=== PATIENT | female | born 2000 | race Caucasian/White ===

== ENCOUNTER 2023-12-07 16:12 | Emergency (ER) | payer BC, SELFPAY ==
[2023-12-07 16:38] VITALS: BP 119/82; PULSE 134; RESP 20; TEMP 36.9; O2SAT 98; BMI 35.4
--- NOTE | 2023-12-07 18:08 | ED.GENADULT ---
HPI - General Adult General Time Seen by Provider: 18:08 Date Seen: 12/07/23 Chief complaint: Unspecified Complaint, Adult Stated complaint: Chest pain, racing heart, nausea, Heart monitor Time Seen by Provider: 12/07/23 18:08 Source: patient, RN notes reviewed and old records reviewed Mode of arrival: ambulatory Limitations: no limitations History of Present Illness HPI narrative: 23-year-old female who presents today with palpitations, has been having this for the last couple of weeks, currently does have a Zio patch on. Was previously evaluated at an outside facility for this with reported negative evaluation. Patient says the symptoms have been going on several weeks. She feels chest tightness that radiates into both arms, nausea with decreased oral intake, denies diarrhea or dark stools. No abdominal pain. Patient feels like she has lost a little bit of weight. Denies smoking, alcohol use. Related Data Home Medications Medication Instructions Recorded Confirmed Lamictal ODT Starter (Blue) 12/07/23 amitriptyline 50 mg tablet 50 mg PO DAILY 12/07/23 12/07/23 prazosin 1 mg capsule (Minipress) 1 mg PO QPM 12/07/23 12/07/23 trazodone 100 mg tablet 100 mg PO QHS PRN 12/07/23 12/07/23 Allergies Allergy/AdvReac Type Severity Reaction Status Date / Time No Known Drug Allergies Allergy Verified 12/07/23 16:47 PFSH PFSH Social History Smoking Status: Never smoker How often do you have a drink containing alcohol: never AUDIT-C Alcohol total score: 0 Non-prescribed substance use: denies use Exam Narrative: Exam Narrative: General: Well-developed and well-nourished, no acute distress Head: Atraumatic and normocephalic Eyes: Pupils are equal reactive, extraocular motions intact, conjunctiva clear ENT: External nose and ears are normal, posterior pharynx without erythema or exudate Neck: No midline cervical tenderness, full spontaneous range of motion the neck, trachea midline, no adenopathy Heart: Tachycardic rate and rhythm no murmurs or thrills Lungs: Clear to auscultation bilaterally without wheezes or crackles Abdomen: Soft, nontender, nondistended with active bowel sounds Musculoskeletal: No tenderness, deformity, or edema Neurologic: Awake, alert, and oriented x3, no gross focal neurologic deficits, cranial nerves intact as tested Psych: Mood and affect are appropriate Skin: No rashes Const: Vital Signs, click to edit/add: Vital Signs - 24 hr 12/07/23 16:38 12/07/23 19:01 Temperature 98.5 F Pulse Rate 109 H Pulse Rate [Pulse Oximeter] 134 H Respiratory Rate 20 14 Blood Pressure 135/73 Blood Pressure [Ri ght Upper Arm] 119/82 Pulse Oximetry 98 100 Oxygen Delivery Me thod Room Air Course Course ED Course: Patient seen examined, prior records reviewed. Patient presents today with palpitations, has history of similar over the last couple of weeks. On initial arrival here heart rate 134, at the time of my exam heart rate was improved but still elevated. Initial EKG demonstrates sinus tachycardia without evidence for atrial dysrhythmia or ventricular dysrhythmia. Labs ordered and will monitor in the emergency department. Reevaluation(s) Time of Reevaluation #1: 19:19 Reevaluation #1: Labs ordered and independently interpreted by me with normal CBC, negative D-dimer, normal basic metabolic panel normal magnesium, normal patent panel, negative CRP, negative BMP, negative test, negative troponin. Patient presents today with palpitations which have been intermittent and going on for the last couple of weeks, accompanied by some chest pain. On exam here, tachycardic in EKG demonstrates sinus tach with no acute ischemic changes, troponin is negative, acute coronary syndrome unlikely. Consider pulmonary embolism but D-dimer is negative, BNP is normal as well. CRP negative and no peaked T-waves or ST changes on EKG to suggest pericarditis or endocarditis. Patient has a residential monitor on now which I suspect will demonstrates sinus tachycardia, she could also be having runs of SVT with a prolonged recovery phase on resumption of sinus rhythm. In any case, no acute emergent or urgent medical condition identified and no urgent or emergent indication for intervention. Patient is stable for discharge with outpatient follow-up. Vital Signs Vital signs: Initial Vital Signs Temperature 98.5 F 12/07/23 16:38 Temperature Source Temporal Artery Scan 12/07/23 16:38 Pulse Rate 134 H 12/07/23 16:38 Pulse Rhythm Regular 12/07/23 16:38 Respiratory Rate 20 12/07/23 16:38 Blood Pressure 119/82 12/07/23 16:38 Blood Pressure Mean 94 12/07/23 16:38 Pulse Oximetry 98 12/07/23 16:38 Oxygen Delivery Method Room Air 12/07/23 16:38 Vital Signs Temperature 98.5 F 12/07/23 16:38 Pulse Rate 134 H 12/07/23 16:38 Respiratory Rate 20 12/07/23 16:38 Blood Pressure 119/82 12/07/23 16:38 Pulse Oximetry 98 12/07/23 16:38 Oxygen Delivery Method Room Air 12/07/23 16:38 Temperature 98.5 F 12/07/23 16:38 Pulse Rate 109 H 12/07/23 19:01 Respiratory Rate 14 12/07/23 19:01 Blood Pressure 135/73 12/07/23 19:01 Pulse Oximetry 100 12/07/23 19:01 Oxygen Delivery Method Room Air 12/07/23 16:38 Medical Decision Making Lab Data Labs: Lab Results 12/07/23 12/07/23 Range/Units 18:30 18:30 WBC 10.15 (4.50-11.00) K/uL RBC 5.06 (4.00-5.20) m/uL Hgb 13.1 (12.0-16.0) gm/dL Hct 39.5 (33.0-51.0) % MCV 78 L (80-100) fL MCH 26 (26-34) pg MCHC 33 (32-36) gm/dL RDW Coeff of Damon 13.5 (11.5-15.5) % Plt Count 311 (140-440) K/uL Neut % (Auto) 68.2 (42.0-72.0) % Lymph % (Auto) 23.2 (20-44) % [place] % (Auto) 6.9 (0.0-11.0) % Eos % (Auto) 1.0 (0.0-7.0) % Baso % (Auto) 0.4 (0.0-3.0) % Neut # (Auto) 6.93 (1.7-7.0) K/uL Lymph # (Auto) 2.35 (0.90-2.90) K/uL [place] # (Auto) 0.70 (0.00-0.90) K/UL Eos # (Auto) 0.10 (0.00-0.50) K/uL Baso # (Auto) 0.04 (0.00-0.30) K/uL Abs Immat Gran (auto) 0.03 (0.00-0.30) K/uL Imm/Tot Granulo (auto) 0.3 % D-Dimer Quant (PE/DVT) 0.34 (0.00-0.50) ug/ml Sodium 137 (135-149) mmol/L Potassium 3.8 (3.6-5.1) mmol/L Chloride 105 (96-114) mmol/L Carbon Dioxide 21 (20-32) mmol/L Anion Gap 11 (7-15) mEq/L BUN 9 (5-24) mg/dL Creatinine 0.6 (0.5-1.5) mg/dL Estimated Creat Clear 121.66 Estimated GFR 130 ml/min Glucose 90 (60-115) mg/dL Calcium 9.4 (8.4-10.6) mg/dL Magnesium 2.2 (1.5-2.6) mg/dL Total Bilirubin 0.4 (0.1-1.5) mg/dL Direct Bilirubin 0.1 (0.0-0.5) mg/dL AST 25 (12-35) U/L ALT 14 (4-35) U/L Alkaline Phosphatase 94 (40-150) U/L C-Reactive Protein 0.8 Cancelled (0.5-1.0) mg/dL NT-Pro-B Natriuret Pep < 20 pg/mL Total Protein 8.4 H (6.0-8.3) g/dL Albumin 4.6 (3.3-5.0) g/dL HCG, Qual Negative (Negative) ECG Data Attestation: I personally reviewed and interpreted this ECG as follows: Prior ECG tracings: not available for review Interpretation: Performed at 6:09 p.m. demonstrates sinus tachycardia rate 120, no acute ST elevations or depressions, normal intervals, normal axis, QTC 463, [place] 150. No prior for comparison Discharge Plan Discharge Clinical Impression: Heart palpitations, Nausea and vomiting Patient Disposition: Home, Self-Care Condition: Stable Instructions: Heart Palpitations (ED), Acute Nausea and Vomiting (DC) Additional Instructions: Follow-up with your primary care provider next week for further evaluation and treatment. Activity Level: Activity as Tolerated Discharge Diet: Regular Prescriptions: No Action trazodone 100 mg tablet 100 mg PO QHS PRN Lamictal ODT Starter (Blue) Patient Comments: 300mg amitriptyline 50 mg tablet 50 mg PO DAILY prazosin [Minipress] 1 mg capsule 1 mg PO QPM Follow Up/Referrals: Provider,Not a Local [Primary Care Provider] - Stand Alone Forms: [employer] Info Instructions
[2023-12-07 18:42] LABS: Basophils Absolute Auto 0.04 K/uL (0.00-0.30); Basophils Percent Auto 0.4 % (0.0-3.0); Hematocrit 39.5 % (33.0-51.0); Hemoglobin* 13.1 gm/dL (12.0-16.0); Immature Granulocytes Abs Auto 0.03 K/uL (0.00-0.30); Immature Granulocytes Pct Auto 0.3 %; Lymphocytes Absolute Auto 2.35 K/uL (0.90-2.90); Lymphocytes Percent Auto 23.2 % (20-44); Mean Corpuscular HGB Conc 33 gm/dL (32-36); Mean Corpuscular Hemoglobin 26 pg (26-34); Mean Corpuscular Volume 78 fL (80-100); Monocytes Percent Auto 6.9 % (0.0-11.0); Neutrophils Absolute Auto 6.93 K/uL (1.7-7.0); Neutrophils Percent Auto 68.2 % (42.0-72.0); Platelet Count* 311 K/uL (140-440); RDW Coefficient of Variation % 13.5 % (11.5-15.5); Red Blood Count 5.06 m/uL (4.00-5.20); White Blood Count* 10.15 K/uL (4.50-11.00)
[2023-12-07 18:45] LABS: Slide Review Reflex No
[2023-12-07] MEDS: 0.9 % SODIUM CHLORIDE 1000 ml 1,000 ML IV (18:50)
[2023-12-07 18:57] LABS: Albumin* 4.6 g/dL (3.3-5.0); Chloride* 105 mmol/L (96-114)
[2023-12-07 18:58] LABS: Potassium* 3.8 mmol/L (3.6-5.1); Sodium* 137 mmol/L (135-149)
[2023-12-07 19:00] LABS: Creatinine* 0.6 mg/dL (0.5-1.5); Est. Creatinine Clearance* 121.66; Estimated Glomerular Filt Rate 130 ml/min
[2023-12-07 19:01] VITALS: BP 135/73; PULSE 109; RESP 14; O2SAT 100
[2023-12-07 19:01] LABS: Alanine Aminotransferase* 14 U/L (4-35); Alkaline Phosphatase* 94 U/L (40-150); Anion Gap 11 mEq/L (7-15); Aspartate Amino Transferase* 25 U/L (12-35); Bilirubin Direct* 0.1 mg/dL (0.0-0.5); Bilirubin Total* 0.4 mg/dL (0.1-1.5); Blood Urea Nitrogen* 9 mg/dL (5-24); Calcium* 9.4 mg/dL (8.4-10.6); Carbon Dioxide* 21 mmol/L (20-32); Glucose* 90 mg/dL (60-115); Total Protein* 8.4 g/dL (6.0-8.3)
[2023-12-07 19:02] LABS: Magnesium* 2.2 mg/dL (1.5-2.6)
[2023-12-07 19:03] LABS: D Dimer Quantitative* 0.34 ug/ml (0.00-0.50)
[2023-12-07 19:04] LABS: C Reactive Protein* 0.8 mg/dL (0.5-1.0)
[2023-12-07 19:08] LABS: HCG Qualitative Serum* Negative (Negative)
[2023-12-07 19:16] LABS: NT Pro B Type NatriureticPept* < 20 pg/mL
[2023-12-07 19:32] VITALS: BP 142/84; PULSE 113; RESP 14; O2SAT 98
[2023-12-07 19:45] VITALS: PULSE 104; O2SAT 98
[2023-12-07 19:52] VITALS: BP 119/82; PULSE 104; RESP 14; TEMP 36.9
== END 2023-12-07 19:53 | disposition home or self-care (01) ==
PROVIDERS: Emergency Provider Family Medicine
DX: R00.2 Palpitations (principal); R11.2 Nausea with vomiting, unspecified
CPT/HCPCS: 36415; 80048; 80076; 83735; 83880; 84703; 85025; 85379; 86140; 93005; 96360; 99284; J7030

== ENCOUNTER 2025-03-31 21:16 | Emergency (ER) | payer OTHER, SELFPAY ==
--- OUTSIDE RECORDS SUMMARY | 2015-01-17 19:00 | XMS_ITS | Continuity of Care Document ---
Author Organization [facility] Address [address] [place] [address] Phone Care Team Providers Care Quality Control Representative Name Role Phone Unavailable Unavailable Unavailable Advance Directives Directive Yes / No Effective Date File Name No Information Encounters Encounter Description Practice Location Reason(s) For Visit Diagnoses Date Provider Providers Copied on Encounter [facility], [address], [place], [place], [id number], [place] tel:[phone] Formerly [facility] Data [facility] No Information Family History Family Member Type Diagnosis Age At Onset No Information Payers Payer name Insurance type Covered democrat ID Authoriza tion(s) No Information Social History Type Description Quantity Date Captured Comments Sex Female Smoking Status No Information Chief Complaint And Reason For Visit No Information Reason For Referral Reason For Referral No Information History Of Present Illness Encounter Date Complaint History Of Prese nt Illness No Information Functional Status Date Functional Assessmen t No Information Instructions Date Instruction Additional Infor mation No Information Assessments Type Assessment Date No Information Patient Care Teams Name Effective Dates (start - stop) Status Members No Information
--- OUTSIDE RECORDS SUMMARY | 2015-01-17 19:00 | XMS_ITS | Continuity of Care Document ---
Author Organization [facility] Address [address] [place] [address] Phone Care Team Providers Care Manager Inventory Control Name Role Phone Unavailable Unavailable Unavailable Advance Directives Directive Yes / No Effective Date File Name No Information Encounters Encounter Description Practice Location Reason(s) For Visit Diagnoses Date Provider Providers Copied on Encounter [facility], [address], [place], [place], [id number], [place] tel:[phone] [facility] Data [facility] No Information Family History Family Member Type Diagnosis Age At Onset No Information Payers Payer name Insurance type Covered libertarian ID Authoriza tion(s) No Information Social History [...]
--- OUTSIDE RECORDS SUMMARY | 2025-03-31 21:19 | XMS_ITS | Data Portability ---
Author Organization [facility] Address [address] [place] [address] Care Team Providers Care Chainsaw Mechanic Name Role Phone DEEPIKA COMFORT Referring Provider Assessment No assessment recorded. Plan of Treatment Reminders Order Date Submit Date Provider Last Modified By Organization Details Last Modified Time Details Appointments None recorded. Lab urinalysis, dipstick 2024 025 [facility], [address], [place], [address], 15:08:16 urinalysis, microscopic 2024 025 [facility], [address], [place], [address], 15:08:16 Referral None recorded. Procedures None recorded. Surgeries None recorded. Imaging None recorded. Medication Orders None recorded. Patient TargetsNo targets recorded. Patient InstructionsNo instructions recorded. Reason for Referral None Reported. Results Created Date Observation Date Name Description Value Unit Range Abnormal Flag Note LastModifiedBy Organization Detail LastModifiedTime 11/07/1911/07/2024 UA WITHO UT MICRO - CS URISC AN blood - uriscan NEGATI VE negati ve Not Available [facility] [address], [place], [address], 11/07/2024 14:31:15 11/07/19 25 11/07/2024 UA WITHO UT MICRO - CS URISC AN bilirubin - uriscan NEGATI VE mg/dL negati ve Not Available [facility] [address] [place] [address], [place], [address], 11/07/2024 14:31:15 11/07/19 25 11/07/2024 UA WITHO UT MICRO - CS URISC AN urobilinogen - uriscan NORMAL mg/dL normal Not Available [facility] [address] [place] [address], [place], [address], 11/07/2024 14:31:15 11/07/19 25 11/07/2024 UA WITHO UT MICRO - CS URISC AN ketones - uriscan NEGATI VE mg/dL negati ve Not Available [facility] [address] [place] [address], [place], [address], 11/07/2024 14:31:15 11/07/19 25 11/07/2024 UA WITHO UT MICRO - CS URISC AN protein - uriscan NEGATI VE mg/dL negati ve Not Available [facility] [address] [place] [address] [address], [place], [address], 11/07/2024 14:31:15 11/07/19 25 11/07/2024 UA WITHO UT MICRO - CS URISC AN nitrites - uriscan NEGATI VE negati ve Not Available [facility] [address] [place] [address] [address], [place], [address], 11/07/2024 14:31:15 11/07/19 25 11/07/2024 UA WITHO UT MICRO - CS URISC AN glucose - uriscan NEGATI VE mg/dL negati ve Not Available [facility] [address] [place] [address] [address], [place], [address], 11/07/2024 14:31:15 11/07/19 25 11/07/2024 UA WITHO UT MICRO - CS URISC AN pH - uriscan 5.00 5.00-9 .00 Not Available [facility] [address] [place] [address] [address], [place], [address], 11/07/2024 14:31:15 11/07/19 25 11/07/2024 UA WITHO UT MICRO - CS URISC AN sp. gravity - uriscan 1.01 1.01-1 .03 Not Available [facility] [address] [place] [address], [place], [address], 11/07/2024 14:31:15 11/07/19 25 11/07/2024 UA WITHO UT MICRO - CS URISC AN leukocytes - uriscan NEGATI VE negati ve Not Available [facility] [address] [place] [address], [place], [address], 11/07/2024 14:31:15 11/07/19 25 11/07/2024 UA WITHO UT MICRO - CS URISC AN color - uriscan YELLOW lt. yellow ;yello w Not Available [facility] [address] [place] [address] [address], [place], [address], 11/07/2024 14:31:15 11/07/19 25 11/07/2024 UA WITHO UT MICRO - CS URISC AN clarity - uriscan CLEAR clear Not Available [facility] [address] [place] [address], [place], [address], 11/07/2024 14:31:15 11/07/19 25 11/07/2024 UA WITHO UT MICRO - CS URISC AN total urine volume (mL) 75 ML /mL ----- ----- ----- ----- ----- ----- ----- ----- ----- ----- ----- ----- ----- ----- ---- *Plea se note the follo wing minim um quant ities for addit ional urine testi ng: - Atypi cals: 3 mL - Cytol ogy: 20 mL - GC/CH : 2 mL - FISH: 30 mL - Atypi cals w/ GC/CH : 5 mL - Cytol ogy PLUS FISH: 50 mL - Urine Cultu re: 3 mL ----- ----- ----- ----- ----- ----- ----- ----- ----- ----- ----- ----- ----- ----- ---- This lab resul t is being provi ded to you and your provi radha at the same time in compl iance with the Centu ry Cures Act. Your provi radha may not have had time to revie w and make recom menda tions based on the resul t. Leoncio lozano allow up to one week for provi radha revie w. Not Available [facility] [address] [place] [address] [address], [place], [address], 11/07/2024 14:31:15 Result Notes None recorded. Procedures Surgical History Date Name Laterality Status Provider Name and Address Organization Details Recorded Time 5 Pelvic Exam completed CONOR SAUNDERS [address] [place] [address],[facility] [address], [place], [address], [facility] 11/06/2024 11:36:13 5 Past Data Reviewed completed CONOR SAUNDERS [address] [place] [address],[address], [place], [address], [facility] 11/06/2024 11:38:45 5 Bladder Scan completed Lori Ayala [facility] 11/07/2024 14:24:15 Imaging Results None recorded. Procedure Notes None recorded. Medical Equipment None Reported. Allergies No known drug allergies Medications Name Sig Start Date Stop Date Status Note LastModified by Organization Details LastModified Time methocarbamol 500 mg tablet 500mg 3/day active Not Available Not Available No t Available lamotrigine 200 mg tablet TAKE 1 TABLET BY MOUTH DAILY active Not Available Not Available No t Available amitriptyline 150 mg tablet 50mg 1/day active Not Available Not Avail able Not Available prazosin 1 mg capsule 1mg 1/day active Not Available Not Available No t Available amitriptyline 50 mg tablet TAKE 1 TABLET BY MOUTH DAILY AT BEDTIME active Not Available Not Available No t Available lorazepam 0.5 mg tablet TAKE ONE TAB UP TO TWICE A A DAY NEEDED FOR INCREASED ANXIETY active Not Available Not Available No t Available trazodone 100 mg tablet 100mg 1/day active Not Available Not Available No t Available bupropion HCl XL 150 mg 24 hr tablet, extended release TAKE 1 TABLET BY MOUTH DAILY active Not Available Not Available No t Available duloxetine 30 mg capsule,delay ed release TAKE 1 CAPSULE BY MOUTH EVERY MORNING active Not Available Not Available No t Available duloxetine 60 mg capsule,delay ed release 60mg 2/day active Not Available Not Availabl e Not Available pregabalin 50 mg capsule active Not Available Not Available N ot Available Lyrica 100 mg capsule 100mg 3/day active Not Available Not Available No t Available lamotrigine 200 mg disintegratin g tablet 200mg 1/day active Not Available Not Available No t Available Vitals Date Recorded Body mass index (BMI) Body weight Provider Name and Address Organization Details Last Updated DateTime 11/07/2024 43.9 kg/m2 161430.17 g Lori Hernandez [facility] 11/07/2024 14:01:18 Date Recorded Body height Provider Name an d Address Organization Details Last Updated DateTime 11/07/2024 157.48 cm Not Available Health Note 11/07/2024 13:55:48 Social History Question Answer Notes LastModified by Organizat ion Details LastModified Time Tobacco Smoking Status Never Smoker Not Available Health Note 11/06/2024 18:08:24 Do You Have An Advance Directive? No [email or web address] Information not available 11/06/2024 What Is Your Level Of Caffeine Consumption? Moderate [email or web address] Information not available 11/06/2024 How Much Tobacco Do You Chew? None [email or web address] Information not available 11/06/2024 Do You Have A Medical Power Of [place]? No [email or web address] Information not available 11/06/2024 What Was The Date Of Your Most Recent Tobacco Screening? 11/07/2024 [email or web address] Information not available 11/06/2024 What Is Your Relationship Status? [email or web address] Information not available 11/06/2024 Are You Sexually Active? No [email or web address] Information not available 11/06/2024 Has Tobacco Cessation Counseling Been Provided? No [email or web address] Information not available 11/07/2024 How Many Days In The Past Year Have You Consumed 4 Or More Drinks? 0 [email or web address] Information no t available 11/06/2024 Sex: Unknown Functional Status Question Answer Note LastModified by Organizat ion Details LastModified Time Do you use any illicit or recreational drugs? No [email or web address] Information not available 11/06/2024 Do you or have you ever used any other forms of tobacco or nicotine? No [email or web address] Information not available 11/07/2024 What is your level of alcohol consumption? None [email or web address] Information not available 11/07/2024 Do you or have you ever used smokeless tobacco? Never used smokeless tobacco [email or web address] Information not available 11/06/2024 Do you or have you ever used e-cigarettes or vape? Never used electronic cigarettes [email or web address] Information not available 11/06/2024 Mental Status None recorded. Family History Nothing Reported Notes:Father has high blood pressure Medical History Condition Response Sexually Transmitted Infection N Diabetes N Bleeding Disorder N High Blood Pressure N Kidney Stones N Cancer N Lung Disease N Depression Y High Cholesterol N GERD/Acid Reflux N Heart Disease N Gynecological History Statement/Question Response Irregular periods Y Heavy periods Y Sexually Active? N Obstetrics History GPAL:G 0 P 0 0 0 0 Past Encounters Encounter ID Performer Location Encounter Start Date Encounter Closed Date Diagnosis/Indication Diagnosis SNOMED-CT Code Diagnosis ICD10 Code Diagnosis Note [id number] CONOR SAUNDERS [facility] [address] [facility] [address] [place] [address] 11/07/2024 13:52:34 11/12/2024 10:14:34 Overactive urinary bladder 023258453 N32.81 new Urinary incontinence 165 367553 R32 new, urge and insensate- Emptying well, PVR 3cc-Review ed overactive bladder care pathway and gave handout.-D iscussed first-line conservati ve management including timed voiding, urge suppressio n strategies , pelvic floor exercises, and avoidance of bladder irritants. -Tender PFMs on exam. Recommende d PFPT. She has a therapist who she has seen in the past and prefers to work with. Does not need new referral-D oes not want to be on medication s at this point-Curr ently undergoing medical workup for neurologic /pain conditions . Will revisit PFPT and then follow up with me when she has more answers about her overall health Myalgia of pelvic floor [id number] M79.18 new Health Concerns Section Related Observation LastModified by Organization Detai ls LastModified Time None Recorded Concern Status LastModified by Organization Details LastModified Time None Recorded Advance Directives Directive N: Payers Insurance Date Sequence Insurance Name Policy Number Policy Lindsey Covered Member ID Lindsey Member ID Guarantor Name 11/07/2024 1 *SELF PAY* Sonia Dutton 11/07/2024 1 [employer] [id number] Marlene Dutton [id number] Marlene Dutton Notes Date Note Type Note Provider Name and Address Organization Details Recorded Time 11/07/2024 text/html 11/[birth year]/[age]yo F presents for evaluation of incontinence History of ASUNCION, fibromyalgia, chronic fatigue Here with her mother who is a nurse. Mother reports she is currently undergoing workup for possible MS, Mile danlos, chronic pain syndrome. Patient reports concern of incontinence off an on for a few years, but much worse over the last 6 months. No life changes that she can associate with this. She voids every few hours during the day, 0 times at night, not wearing pads for leakage. Experiences incontinence when her chronic pain is exacerbated or when she has to walk around. Does not have an urge preceding the leakage always. Infrequent CONRADO. No history of recurrent urinary tract infections, kidney stones, or gross hematuria. Denies symptomatic prolapse, abdominal surgeries include none. Drinks 3 glasses milk, 1-2 cans soda, and 1 cup of tea, sometimes a bottle of water. BM daily. Never smoker. She has done PFPT in the past. Urogenital Distress Inventory (ENRRIQUE-6): 11, Incontinence Impact Questionnaire (IIQ-7): 8 CONOR SAUNDERS [address] [place] [address],[address], [place], [address], [place] [facility] 11/07/2024 14:35:19 OBGyn Episode No OBEpisode recorded.
--- OUTSIDE RECORDS SUMMARY | 2025-03-31 21:19 | XMS_ITS | Data Portability ---
Author Organization [facility], [facility] Address [address] [place] [address] Care Team Providers Care Wind Turbine Mechanical Engineer Name Role Phone DEEPIKA COMFORT Referring Provider [phone] Assessment No assessment recorded. Plan of Treatment Reminders Order Date Submit Date Provider Last Modified By Organization Details Last Modified Time Details Appointments None recorded. Lab urinalysis, dipstick 2024 025 [facility], [address] [facility] [address], [address], [place], [address], 15:08:16 urinalysis, microscopic 2024 025 [facility], [address], [address], [place], [address], 15:08:16 Referral None recorded. Procedures None recorded. [...] uriscan NEGATI VE negati ve Not Available [facility] [address] [facility], [place], [address], 11/07/2024 14:31:15 11/07/19 25 11/07/2024 UA WITHO UT MICRO - CS URISC AN bilirubin - uriscan NEGATI VE mg/dL negati ve Not Available [facility] [address] [place] [address] [address], [place], [address], 11/07/2024 14:31:15 11/07/19 25 11/07/2024 UA WITHO UT MICRO - CS URISC AN urobilinogen - uriscan NORMAL mg/dL normal Not Available [facility] [address] [place] [address] [address], [place], [address], 11/07/2024 14:31:15 11/07/19 25 11/07/2024 UA WITHO UT MICRO - CS URISC AN ketones - uriscan NEGATI VE mg/dL negati ve Not Available [facility] [address] [place] [address] [address], [place], [address], 11/07/2024 14:31:15 11/07/19 25 11/07/2024 UA WITHO UT MICRO - CS URISC AN protein - uriscan NEGATI VE mg/dL negati ve Not Available [facility] [address] [place] [address] [address], [place], [address], 11/07/2024 14:31:15 11/07/19 25 11/07/2024 UA WITHO UT MICRO - CS URISC AN nitrites - uriscan NEGATI VE negati ve Not Available [facility] [address] [place] [address] 200, [place], [address], 11/07/2024 14:31:15 11/07/19 25 11/07/2024 UA WITHO UT MICRO - CS URISC AN glucose - uriscan NEGATI VE mg/dL negati ve Not Available [facility] [address] [place] [address] [address], [place], [address], 11/07/2024 14:31:15 11/07/19 25 11/07/2024 UA WITHO UT MICRO - CS URISC AN pH - uriscan 5.00 5.00-9 .00 Not Available [facility] [address] [place] [address] [address], [place], [address], 11/07/2024 14:31:15 11/07/19 25 11/07/2024 UA WITHO UT MICRO - CS URISC AN sp. gravity - uriscan 1.01 1.01-1 .03 Not Available [facility] [address] [place] [address] 200, [place], [address], 11/07/2024 14:31:15 11/07/19 25 11/07/2024 UA WITHO UT MICRO - CS URISC AN leukocytes - uriscan NEGATI VE negati ve Not Available [facility] [address] [place] [address], [place], [address], 11/07/2024 14:31:15 11/07/19 25 11/07/2024 UA WITHO UT MICRO - CS URISC AN color - uriscan YELLOW lt. yellow ;yello w Not Available [facility] [address] [place] [address] 200, [place], [address], 11/07/2024 14:31:15 11/07/19 25 11/07/2024 UA WITHO UT MICRO - CS URISC AN clarity - uriscan CLEAR clear Not Available [facility] [address] [place] [address] 200, [place], [address], 11/07/2024 14:31:15 11/07/19 25 11/07/2024 UA WITHO [...] for provi radha revie w. Not Available [facility] [address] [place] [address] [address], [place], [address], 11/07/2024 14:31:15 Result Notes None recorded. Procedures Surgical History Date Name Laterality Status Provider Name and Address Organization Details Recorded Time 5 Pelvic Exam completed CONOR SAUNDERS [address] [place] [address],[facility] [address], [address], [facility] 11/06/2024 11:36:13 5 Past Data Reviewed completed CONOR SAUNDERS [address] [place] [address],[address], [place], [address], [facility] 11/06/2024 11:38:45 5 Bladder Scan completed Lori Ayala [facility] 11/07/2024 14:24:15 Imaging Results None recorded. [...] Details Last Updated DateTime 11/07/2024 43.9 kg/m2 119187.17 g Lori Hernandez [facility] 11/07/2024 14:01:18 Date Recorded Body height [...] Do You Have A Medical Power Of Line Prep Cook? No [email or web address] Information not available 11/06/2024 What Was The Date Of Your Most Recent Tobacco Screening? 11/07/2024 [email or web address] Information not available 11/06/2024 What Is Your Relationship Status? [email or web address] Information not available 11/06/2024 Are You Sexually Active? No [email or web address] Information not available 11/06/2024 Has Tobacco Cessation Counseling Been Provided? No [email or web address] Information not available 11/07/2024 How Many Days [...] other forms of tobacco or nicotine? No [email or web address] Information not available 11/07/2024 What is your level of alcohol consumption? None [email or web address] Information not available 11/07/2024 Do you or [...] SNOMED-CT Code Diagnosis ICD10 Code Diagnosis Note [id number] CONOR SAUNDERS [facility] [address] [facility] [address] [place] [address] 11/07/2024 13:52:34 11/12/2024 10:14:34 Overactive urinary bladder 216474628 N32.81 new Urinary incontinence 165 171255 R32 new, urge and insensate- Emptying well, [...] her overall health Myalgia of pelvic floor [id number] M79.18 new Health Concerns Section Related Observation LastModified by Organization Detai ls LastModified Time None Recorded Concern Status LastModified by Organization Details LastModified Time None Recorded Advance Directives Directive N: Payers Insurance Date Sequence Insurance Name Policy Number Policy Lindsey Covered Member ID Lindsey Member ID Guarantor Name 11/07/2024 1 *SELF PAY* Sonia Dutton 11/07/2024 1 [employer] [id number] Marlene Dutton [id number] Marlene Dutton Notes Date Note Type [...] Incontinence Impact Questionnaire (IIQ-7): 8 CONOR SAUNDERS [address] [place] [address],[address], [place], [address], [place] - [facility] 11/07/2024 14:35:19 OBGyn Episode No OBEpisode recorded.
--- OUTSIDE RECORDS SUMMARY | 2025-03-31 21:19 | XMS_ITS | Clinical Summary ---
Author Organization [facility] Address [address] [place] [address] Care Team Providers Care Clinical Associate Name Role Phone Needs Pcp, Assignment Primary Care Provider [phone] Source Comments You are receiving this document as you are listed as the primary care provider,follow-up provider, or the patient has been referred to you for consultation.This is in compliance with the Medicare and[facility] EHR Incentive Program,which states Providers who transition their patient to another setting of careor provider of care or refers their patient to another provider of care shouldprovide summary care record for each transition of care or referral. [facility] Allergies No known active allergies Medications amitriptyline (ELAVIL) 50 MG tablet Take 1 Tablet (50 mg) by mouth daily. 04/23/2022 Active buPROPion (WELLBUTRIN XL) 300 MG 24 hour release tablet Take 300 mg by mouth daily. 04/23/2022 Active hydrOXYzine HCl (ATARAX) 25 MG tablet SMARTSI Tablet(s) By Mouth 1-3 Times Daily 02/11/2022 Active lamoTRIgine (LAMICTAL) 200 MG tablet Take 1 Tablet (200 mg) by mouth daily. 02/11/2022 Active prazosin (MINIPRESS) 1 MG capsule Take 1 Capsule (1 mg) by mouth daily at bedtime. 01/07/2022 Active traZODone (DESYREL) 100 MG tablet Take 1 Tablet (100 mg) by mouth daily as needed. 04/22/2022 Active LORazepam (ATIVAN) 0.5 MG tablet SMARTSI Tablet(s) By Mouth 1-3 Times Daily PRN 09/05/2023 Active Active Problems Problem Noted Date Diagnosed Date Generalized anxiety disorder 01/05/2021 Suicidal ideations 01/05/2021 Social History Tobacco Use Types Packs/Day Years Used Date Smoking Tobacco: Never Tobacco Cessation:Counseling Given: Not Answered Alcohol Use Standard Drinks/Week Comments Not Currently 0 (1 standard drink = 0.6 oz pur e alcohol) Comments No Sex and Gender Information Value Date Recorded Sex Assigned at Not on file Legal Sex Female 5:35 PM CDT Gender Identity Not on file Sexual Orientation Not on file Last Filed Vital Signs Vital Sign Reading Time Taken Comments Blood Pressure 134/88 11/23/2023 5:25 PM JOINT CUTTER MACHINE Pulse 133 11/23/2023 5:25 PM JOINT CUTTER MACHINE Temperature 36.9 C (98.5 F) 11/23/2023 5:25 PM JOINT CUTTER MACHINE Respiratory Rate 20 11/23/2023 5:25 PM JOINT CUTTER MACHINE Oxygen Saturation 98% 11/23/2023 5:25 PM JOINT CUTTER MACHINE Inhaled Oxygen Concentration - - Weight - - Height - - Body Mass Index - - Plan of Treatment Health Maintenance Due Date Last Done Comments Cervical Cancer Screening Due 2001 Chlamydia 2001 Hep C Screening (Preventive Services) 2001 MenB Immunization Discussion 2001 HPV Vaccine (1 - 3-dose series) 2016 HIV Screening (Preventive Services) 2017 Adult Preventive Visit 2019 DTaP/Tdap/Td Vaccine (1 - Tdap) 2020 HepB Vaccine (1) 2020 COVID-19 Vaccine (3 - 2023-2 5 season) 2024 12/04/2020, 11/06/2020 Influenza Vaccine (Season Ended) 2025 07/06/2021, 07/17/2019 Zoster/Shingles Vaccine (1 o f 2) 2051 MCV4 Vaccine Completed 07/17/2019 HepA Vaccine Aged Out No longer eligi ble based on patient's age to complete this topic Hib Vaccine Aged Out No longer eligi ble based on patient's age to complete this topic IPV (Polio) Vaccine Aged Out No longe r eligible based on patient's age to complete this topic Pneumococcal Vaccine Aged Out No long er eligible based on patient's age to complete this topic Insurance BCBS OUT OF STATE Care Teams Clinical Associate Relationship Specialty Start Date End Date Needs Pcp, [place] [address] PCP - General 08/16/22
--- OUTSIDE RECORDS SUMMARY | 2025-03-31 21:19 | XMS_ITS | Clinical Summary ---
Author Organization [employer] [facility] Address [address] [place] [address] Care Team Providers Care Metal Control Worker Name Role Phone Jess Vasquez MD Primary Care Provider Suyapa Cadena DICTATING MACHINE TRANSCRIBER Unavailable [phone] Maritza Soto PharmD Unavailable Allergies No known active allergies Medications pregabalin (Lyrica) 100 mg capsuleIndicatio ns:Fibromyalgia, Chronic pain associated with significant psychosocial dysfunction Take 1 Capsule (100 mg) by mouth three times daily. 93 Capsule 10/21/19 25 Active CaneIndications: Fibromyalgia,Chr onic pain associated with significant psychosocial dysfunction Single Point Cane for home use. For 99 weeks. 1 Each 10/21/19 25 Active traZODone (DESYREL) 100 mg tablet Take 1 Tablet (100 mg) by mouth at bedtime. 11/11/19 25 Active prazosin (MINIPRESS) 1 mg capsule Take 1 Capsule (1 mg) by mouth at bedtime. 11/11/19 25 Active amitriptyline 50 mg tablet Take 1 Tablet (50 mg) by mouth once daily. 11/11/19 25 Active lamoTRIgine 200 mg tablet Take 1 Tablet (200 mg) by mouth once daily. 11/11/19 25 Active ibuprofen (ADVIL; MOTRIN) 200 mg tablet Take 1 Tablet (200 mg) by mouth every 4 hours if needed for Pain or Headache. 11/11/19 25 Active aspirin-acetamin ophen-caffeine (Excedrin Migraine) 250-250-65 mg Take 1 Tablet by mouth every 6 hours if needed for Headache. Max acetaminophen dose: 4000mg in 24 hrs. 11/11/19 25 Active Active Problems Problem Noted Date Diagnosed Date Pap smear for cervical cancer screening 12/19/19 24 Overview (12/19/2023): 11/2023 NIL Plan: Pap/HPV due 11/2026 Generalized anxiety disorder 01/05/2021 Resolved Problems Problem Noted Date Diagnosed Date Resolved Date Suicidal ideations 01/05/2021 Encounter for surveillance o f contraceptive pills 12/12/2023 Encounters Date Type Department Care Team Description 01/29/2025 Telephone [facility] [address] [facility] [address] [place] [address] Man Zambrano, Appointment (Virtual) from Last 3 Months Immunizations Immunization Administration Dates Next Due COVID-19 VACCINE SPIKEVAX (M ODERNA 50MCG/0.5ML) 12YO+ PFS 12/12/2023 COVID-19 vaccine (Moderna 10 0mcg/0.5mL) PF, MDV 12/04/2020,11/06/2020 Influenza, IIV4 12/12/2023,07/06/2021,07/17/2019 MENINGOCOCCAL VACCINE 2 VIAL 2MO-55YO (MENVEO) 07/17/2019 Meningococcal B 07/17/2019 Tdap 12/12/2023 Family History Medical History Relation Name Comments Hypertension Father Fibromyalgia Mother Stomach cancer Paternal Grandmother No Known Problems Sister 1 Lorlei No Known Problems Sister 2 Vandiver Relation Name Status Comments Father Alive Maternal Grandfather Alive Maternal Grandmother Alive Mother Alive Paternal Grandfather Paternal Grandmother Sister 1 Lorlei Alive Sister 2 Vandiver Alive Social History Tobacco Use Types Packs/Day Years Used Date Smoking Tobacco: Never Passive Smoke Exposure: Never Smokeless Tobacco: Never Tobacco Cessation:Counseling Given: Yes Alcohol Use Standard Drinks/Week Comments Yes 0 (1 standard drink = 0.6 oz pure alcohol) no alcohol in a couple of months PHQ-2 Answer Date Recorded PHQ-2 TOTAL SCORE 4 12/12/2023 Social Connections Answer Date Recorded Do you often feel lonely or isolated from those around you? 0 12/12/2023 Financial Resource Strain Answer Date R ecorded Difficulty of Paying Living Expenses 3 12/12/2023 Difficulty of Paying Living Expenses Not on file 12/12/2023 Food Insecurity Answer Date Recorded Do you worry your food will run out before you are able to buy more? 1 12/12/2023 Transportation Needs Answer Date Record ed Does lack of transportation keep you from medica l appointments? 1 12/12/2023 Does lack of transportation keep you from work, meetings or getting things that you need? 1 12/12/2023 Housing Stability Answer Date Recorded What is your housing situation today? 1 12/12/2023 Utilities Answer Date Recorded Do you have trouble paying f or utilities (for example, heat, electricity, water, phone)? 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 Not on file Not on file Not on fi le Obstetrics History Para Term AB IAB SAB Ectopic Multiple Livin g Live Births 0 0 0 0 0 0 0 0 0 0 0 Last Filed Vital Signs Vital Sign Reading Time Taken Comments Blood Pressure 112/82 10/02/2024 11:23 AM CREDIT ANALYSIS MANAGER Pulse 126 10/02/2024 11:23 AM CREDIT ANALYSIS MANAGER Temperature 36.8 C (98.2 F) 05/09/2024 9:44 AM CDT Respiratory Rate 18 05/09/2024 9:44 AM CDT Oxygen Saturation 98% 10/02/2024 11: 23 AM CREDIT ANALYSIS MANAGER Inhaled Oxygen Concentration - - Weight 114.7 kg (252 lb 12.8 oz) 2023 11:23 AM CREDIT ANALYSIS MANAGER Height 160 cm (5' 3) 05/09/2024 9:44 AM CDT Body Mass Index 44.78 05/09/2024 9:44 AM CDT Plan of Treatment Upcoming Encounters Date Type Department Care Team (Late st Contact Info) Description 04/24/2025 2:30 PM CDT Office Visit [facility] [address] [place] [address] Kevon Soliman MD [address] [place] [address] Health Maintenance Due Date Last Done Comments HPV series for age 9-26 (1 - 3-dose series) 2016 Hepatitis B series for 19+ (1 of 3 - 19+ 3-dose series) 2020 COVID-19 vaccine series ( - 2023- season) 2024 12/12/2023, 12/04/2020, 11/06/2020 Chlamydia for age 16-24 12/12/2024 12/12/2023 Depression screening for age 12+ 12/12/2024 12/12/2023, 01/05/2021 BMI (ht and wt on same day) for age 18+ 05/09/2025 05/09/2024, 01/09/2024, 12/12/2023, Additional history exists Influenza Vaccine (Season Ended) 2025 12/12/2023, 07/06/2021, 07/17/2019 Pap test for age 21-65 12/12/2026 12/12/2023 Tetanus booster 12/12/2033 12/12/2023 HIV for age 15-65 Completed 12/12/2023 Hepatitis C screening for age 18-79 Completed 12/12/2023 Tdap Completed 12/12/2023 Pneumococcal series for age 6-49 Aged Out No longer eligible based on patient's age to complete this topic Procedures Procedure Name Priority Date/Time Associated Diagnosis Comments GC CHLAMYDIA TRACH PROBE Routine 12/12/2023 2:25 PM CREDIT ANALYSIS MANAGER Screening for chlamydial disease ARTIFICIAL LIMB FITTER THIN PREP PAP SCREEN IMAGED Routine 12/12/2023 2:25 PM CREDIT ANALYSIS MANAGER Pap smear for cervical cancer screening ANTI HIV 1/2 Routine 12/12/2023 2:21 PM CREDIT ANALYSIS MANAGER Encounter for screening for HIV ANTI HCV Routine 12/12/2023 2:21 PM CREDIT ANALYSIS MANAGER Need for hepatitis C screening test from Last 3 Months or Most Recently Relevant to Health Maintenance Results * ARTIFICIAL LIMB FITTER THIN PREP PAP SCREEN IMAGED (12/12/2023 2:25 PM CREDIT ANALYSIS MANAGER) Case Report Gynecologic Cytology Report Case: [id number] Authorizing Provider: Jess Vasquez MD Collected: 12/12/2023 1425 Ordering Location: [facility] Received: 12/12/2023 1425 Clinic First Screen: Brenda Herrmann Specimen: ARTIFICIAL LIMB FITTER ThinPrep Vial Screening, Cervical 12/19/2023 11:27 AM CREDIT ANALYSIS MANAGER [facility] INTERPRETATION/ RESULT NEGATIVE FOR INTRAEPITHELIAL LESION OR MALIGNANCY (NIL) (none) 12/19/2023 11:27 AM CREDIT ANALYSIS MANAGER [facility] at 1127 CREDIT ANALYSIS MANAGER SPECIMEN ADEQUACY Satisfactory for evaluation Endocervical component present 12/19/2023 11:27 AM CREDIT ANALYSIS MANAGER [facility] Date of LMP 09/12/2023 12/19/2023 11:27 AM CREDIT ANALYSIS MANAGER [facility] Last Pap Date First Pap 12/19/2023 11:27 AM CREDIT ANALYSIS MANAGER [facility] Last Pap Result First Pap/Unknown 11:27 AM CREDIT ANALYSIS MANAGER [facility] Abnormal Pap or [place] Bx in last 5 years No 12/19/2023 11:27 AM CREDIT ANALYSIS MANAGER [facility] Menstrual Status Irregular Periods 12/19/2023 11:27 AM CREDIT ANALYSIS MANAGER [facility] [place] Bx Done Today No 12/19/2023 11:27 AM CREDIT ANALYSIS MANAGER [facility] Additional Information None given 12/19/2023 11:27 AM CREDIT ANALYSIS MANAGER [facility] Comment: Cytology is screened at [facility] - [address], [place] [address] and [facility] - [address], [place] [address] and [facility] - [address] [place] [address] Interpreted at [facility] - [address] [place], [place] [address] [address] Automated Review Successful 12/19/2023 11:27 AM CREDIT ANALYSIS MANAGER [facility] Comment:Specimen processed s uccessfully by automated technology solutions architect device, ThinPrep Imaging System, [employer] Note The pap test is a screening technique, not a diagnostic procedure. It is used primarily to screen for squamous cancers and precursor lesions. Published studies have shown that it is subject to both false negative and false positive results. The pap test should not be used as the sole means to diagnose or exclude pre-malignant and malignant lesions. 12/19/2023 11:27 AM CREDIT ANALYSIS MANAGER [facility] Other (Cervical) Non-Blood / Unknown 12/12/2023 2:25 PM CREDIT ANALYSIS MANAGER 12/12/2023 2:25 PM CREDIT ANALYSIS MANAGER Jess Vasquez MD PATHOLOGY/CYTOLOGY Yudelka l Result Performing Organization Address [facility] Co de Phone Number [facility] [address] [place] [address], [place] * GC CHLAMYDIA TRACH PROBE (12/12/2023 2:25 PM CREDIT ANALYSIS MANAGER) CHLAMYDIA PROBE Negative 2:49 AM CREDIT ANALYSIS MANAGER [facility] N GONORRHOEAE PROBE Negative 12/13/2023 2:49 AM CREDIT ANALYSIS MANAGER [facility] Other VAGINAL SWAB / Unknown Non-Blood / Unknown 12/12/2023 2:25 PM CREDIT ANALYSIS MANAGER 12/12/2023 2:25 PM CREDIT ANALYSIS MANAGER Jess Vasquez MD MICROBIOLOGY Final R esult Performing Organization Address City/[facility]/ZIP Co de Phone Number [facility] [address] [address], [place] * ANTI HCV (12/12/2023 2:21 PM CREDIT ANALYSIS MANAGER) HEPATITIS C ANTIBODY Non-Reacti ve Non-React rosita 12/12/2023 9:14 PM CREDIT ANALYSIS MANAGER [facility] Comment:Please note, per www .CDC.gov: If a patient is known to be at high risk of HCV infection, or is symptomatic, and the physician's suspicion of HCV infection is high, HCV RNA testing is often employed and is of diagnostic value, even after an initial negative anti-HCV test result. Blood BLOOD SPECIMEN / Unknown Venipuncture / Unknown 12/12/2023 2:21 PM CREDIT ANALYSIS MANAGER 12/12/2023 2:21 PM CREDIT ANALYSIS MANAGER Jess Vasquez MD SEND OUTS Final R esult Performing Organization Address City/[facility]/ZIP Co de Phone Number [facility] [address] [place] [address], * ANTI HIV 1/2 (12/12/2023 2:21 PM CREDIT ANALYSIS MANAGER) HIV-1/HIV-2 SCREEN Non-Reacti ve Non-Reacti ve 12/12/2023 9:15 PM CREDIT ANALYSIS MANAGER [facility] Comment:HIV-1 p24 and HIV-1/ HIV-2 Ab Not Detected. Blood BLOOD SPECIMEN / Unknown Venipuncture / Unknown 12/12/2023 2:21 PM CREDIT ANALYSIS MANAGER 12/12/2023 2:21 PM CREDIT ANALYSIS MANAGER Jess Vasquez MD SEND OUTS Final R esult Performing Organization Address [facility] Co de Phone Number [facility] [address] [place] [address], from Last 3 Months or Most Recently Relevant to Health Maintenance Insurance [facility] Care Teams Metal Control Worker Relationship Specialty [place] [address] [place] [address] PCP - General Family Practice 12/12/23 Suyapa Cadena NP [address] [place] [address] Pain Management Nurse Practitioner - Family 10/21/24 Maritza Soto, PharmD [address] [place] [address] Pharmacist Medication Management Pharmacology 11/11/24 11/11/27
--- OUTSIDE RECORDS SUMMARY | 2025-03-31 21:19 | XMS_ITS | Clinical Summary ---
Author Organization [facility] Address [address] [place] [address]. [place] [address] Care Team Providers Care Rag Baler Name Role Phone [facility] Primary Care Provider + Allergies No known active allergies Medications propranolol (INDERAL) 20 MG tablet Take 1 tablet (20 mg) by mouth 3 times daily as needed (anxiety) 30 tablet 07/15/2020 Active Social History Tobacco Use Types Packs/Day Years Used Date Smoking Tobacco: Passive Smo ke Exposure - Never Smoker Smokeless Tobacco: Never Alcohol Use Standard Drinks/Week Comments Not Currently 0 (1 standard drink = 0.6 oz pur e alcohol) Comments No Sex and Gender Information Value Date Recorded Sex Assigned at Not on file Legal Sex Female 10:49 AM CDT Gender Identity Not on file Sexual Orientation Not on file Last Filed Vital Signs Vital Sign Reading Time Taken Comments Blood Pressure 101/59 07/15/2020 2:27 PM CDT Pulse 62 07/15/2020 2:27 PM CDT Temperature 36.7 C (98.1 F) 07/15/2020 2:27 PM CDT Respiratory Rate 16 07/15/2020 11:42 AM CDT Oxygen Saturation 95% 07/15/2020 2:27 PM CDT Inhaled Oxygen Concentration - - Weight 67.6 kg (149 lb) 07/15/2020 11:42 AM CDT Height - - Body Mass Index - - Plan of Treatment Not on file Insurance [employer] [place] Care Teams Rag Baler Relationship Specialty Start Date End Date [facility] PCP - General Family Practice 07/15/20
[2025-03-31 21:24] VITALS: BP 127/82; PULSE 138; RESP 20; TEMP 36.3; O2SAT 99; BMI 44.6
--- NOTE | 2025-03-31 21:57 | ED.HA ---
HPI - Headache General Chief Complaint: Headache/Migraine Stated Complaint: 2 week migraine Time Seen by Provider: 03/31/25 21:18 History of Present Illness HPI Narrative: This 24-year-old female has a history of migraine-type headaches and comes in stating that this 1 is been going on for a couple weeks. Despite taking Excedrin she has not been able to get relief. She does not report any neurologic deficits. She states that at times she feels some tingling in her hands bilaterally. Related Data Home Medications ?Medication ?Instructions ?Recorded ?Confirmed Lamictal ODT Starter (Blue) 200 mg PO QDAY 12/07/23 03/31/25 amitriptyline 50 mg tablet 50 mg PO DAILY 12/07/23 12/07/23 prazosin 1 mg capsule (Minipress) 1 mg PO QPM 12/07/23 12/07/23 trazodone 100 mg tablet 100 mg PO QHS PRN 12/07/23 12/07/23 zolpidem 10 mg tablet 10 mg PO QPM PRN insomnia 03/31/25 03/31/25 Previous Rx's ?Medication ?Instructions ?Recorded ketorolac 10 mg tablet 10 mg PO TID 5 days #15 tabs 03/31/25 ondansetron HCl 4 mg tablet 4 mg PO Q6H #15 tabs 03/31/25 Allergies Allergy/AdvReac Type Severity Reaction Status Date / Time No Known Drug Allergies Allergy Verified 12/07/23 16:47 Review of Systems Status of ROS: Reports: 10 or more systems reviewed and unremarkable except as noted in History and below Narrative: Constitutional: No fevers, no weight gain or loss. Eyes: No discharge. No vision changes. HENT: No congestion, no sore throat, no ear pain. Cardiovascular: No chest pain, no palpitations. Respiratory: No shortness of breath, no wheezes, no cough. Gastrointestinal: No abdominal pain, no vomiting, no diarrhea. Genitourinary: No dysuria, no hematuria. Musculoskeletal: Normal range of motion. Skin: No rashes, no pruritis. Neurological: No dizziness, weakness, speech change. Endo/Heme/Allergies: No bruising or bleeding. No polydipsia. Pysch: no suicidality, no anxiety, no insomnia. All other systems reviewed and are negative. PFSH PFSH Social History Smoking Status: Never smoker How often do you have a drink containing alcohol: never AUDIT-C Alcohol total score: 0 Non-prescribed substance use: denies use service: No Exam Narrative: Exam Narrative: Constitutional: Well-developed, well-nourished, no acute distress. HEENT: Normocephalic, atraumatic. Neck: Normal range of motion. Nontender. Supple. Heart: Intact distal pulses. Lungs: No chest discomfort. No wheezes, rhonchi, or rales. Abdomen: Nontender. Back: Normal range of motion. Extremities: Normal range of motion. No injury. Skin: Intact. No rash. Warm. No erythema or pallor. Neurologic: No weakness. Alert and oriented. Psychiatric: No suicidality. No anxiety or depression. No insomnia. Nursing notes and vitals signs are reviewed. Const: Vital Signs, click to edit/add: Vital Signs - 24 hr 03/31/25 21:24 03/31/25 22:16 Temperature 97.4 F L Pulse Rate [Right Pulse Oximeter] 138 H 96 Respiratory Rate 20 18 Blood Pressure [Ri ght Upper Arm] 127/82 Pulse Oximetry 99 96 Oxygen Delivery Me thod Room Air Room Air Course Vital Signs Vital signs: Initial Vital Signs Temperature 97.4 F L 03/31/25 21:24 Temperature Source Temporal Artery Scan 03/31/25 21:24 Pulse Rate 138 H 03/31/25 21:24 Respiratory Rate 20 03/31/25 21:24 Blood Pressure 127/82 03/31/25 21:24 Blood Pressure Mean 97 03/31/25 21:24 Blood Pressure Position Sitting 03/31/25 21:24 Pulse Oximetry 99 03/31/25 21:24 Oxygen Delivery Method Room Air 03/31/25 21:24 Vital Signs Temperature 97.4 F L 03/31/25 21:24 Pulse Rate 138 H 03/31/25 21:24 Respiratory Rate 20 03/31/25 21:24 Blood Pressure 127/82 03/31/25 21:24 Pulse Oximetry 99 03/31/25 21:24 Oxygen Delivery Method Room Air 03/31/25 21:24 Temperature 97.4 F L 03/31/25 21:24 Pulse Rate 96 03/31/25 22:16 Respiratory Rate 18 03/31/25 22:16 Blood Pressure 127/82 03/31/25 21:24 Pulse Oximetry 96 03/31/25 22:16 Oxygen Delivery Method Room Air 03/31/25 22:16 Medications Administered Medications: Discontinued Medications Generic Name Dose Route Start Last Admin Trade Name Jose Daniel PRN Reason Stop Dose Admin Diphenhydramine HCl 50 mg 03/31/25 21:56 03/31/25 22:19 Diphenhydramine 50 Mg/Ml Inj IVP 03/31/25 21:57 50 mg ONCE ONE Administration Sodium Chloride 500 mls @ 500 mls/hr 03/31/25 21:56 03/31/25 22:18 0.9 % Sodium Chloride 500 Ml IV 03/31/25 22:55 500 mls/hr .Q1H ONE Administration Ketorolac Tromethamine 30 mg 03/31/25 21:56 03/31/25 22:22 Ketorolac 30 Mg/Ml Inj IVP 03/31/25 21:57 30 mg ONCE ONE Administration Methylprednisolone Sodium Succinate 125 mg 03/31/25 21:56 03/31/25 22:25 Methylprednisolone Sod Succ 62.5 Mg/Ml (125) IVP 03/31/25 21:57 125 mg ONCE ONE Administration Ondansetron HCl 4 mg 03/31/25 21:56 03/31/25 22:18 Ondansetron 2 Mg/Ml Inj IVP 03/31/25 21:57 4 mg ONCE ONE Administration MDM - Headache MDM Narrative Medical decision making narrative: This patient has a history of migraine-type headaches and states that this 1 has been persistent over the past couple weeks or so. She comes in stating that she wants the pain to go way. She is not exhibiting any signs or symptoms that indicate a need for imaging or lab studies. An IV was established where she did receive Toradol 30 mg, Zofran 4 mg, Benadryl 50 mg, and methylprednisolone 125 mg. This brought sufficient relief to her headache. She feels okay to return home. I did provide prescriptions for Zofran and Toradol from her preferred pharmacy. Discharge Plan Discharge Clinical Impression: Migraine Patient Disposition: Home, Self-Care Condition: Improved Additional Instructions: Take medications as needed and indicated. Follow up with MD return if worsening. Prescriptions: New ondansetron HCl 4 mg tablet 4 mg PO Q6H Qty: 15 0RF ketorolac 10 mg tablet 10 mg PO TID 5 Days Qty: 15 0RF No Action trazodone 100 mg tablet 100 mg PO QHS PRN Lamictal ODT Starter (Blue) 200 mg PO QDAY Patient Comments: 300mg amitriptyline 50 mg tablet 50 mg PO DAILY prazosin [Minipress] 1 mg capsule 1 mg PO QPM zolpidem 10 mg tablet 10 mg PO QPM PRN (Reason: insomnia) Follow Up/Referrals: Provider,Not a Local [Primary Care Provider, Family Practice] [facility] Inst[facility]
[2025-03-31 22:16] VITALS: PULSE 96; RESP 18; O2SAT 96
[2025-03-31] MEDS: ONDANSETRON 2 MG/ML inj 4 MG IVP (22:18)
[2025-03-31] MEDS: 0.9 % SODIUM CHLORIDE 500 ML 500 ML IV (22:18)
[2025-03-31] MEDS: diphenhydrAMINE 50 MG/ML inj IVP (22:19)
[2025-03-31] MEDS: KETOROLAC 30 MG/ML inj IVP (22:22)
[2025-03-31] MEDS: METHYLPREDNISOLONE SOD SUCC 62.5 MG/ML (125) 125 MG IVP (22:25)
== END 2025-03-31 23:22 | disposition home or self-care (01) ==
PROVIDERS: Emergency Provider Emergency Medicine Emergency Medical Services
DX: G43.909 Migraine, unspecified, not intractable, without status migrainosus (principal)
CPT/HCPCS: 96374; 96375; 99284; J1200; J1885; J2405; J2919; J7030